=== PATIENT | male | born 1960 | race Caucasian/White ===

== ENCOUNTER 2016-07-14 11:06 | Outpatient (RCR) | payer OTHER ==
[~2016-07-14 11:06] MED LIST: AMBIEN 10MG10 MG PO
== END 2016-08-30 ==
LOC: WSOH
DX: M54.5 Low back pain (principal); M62.830 Muscle spasm of back; M51.36 Other intervertebral disc degeneration, lumbar region; X50.0XXA Overexertion from strenuous movement or load, initial encounter; Y99.0 Civilian activity done for income or pay

== ENCOUNTER 2016-09-05 08:18 | Outpatient (RCR) | payer OTHER | END 2016-10-03 11:30 | LOC: WSOH 08:18 | DX: M54.5 Low back pain (principal); M62.830 Muscle spasm of back; M51.36 Other intervertebral disc degeneration, lumbar region; X50.0XXA Overexertion from strenuous movement or load, initial encounter; Y99.0 Civilian activity done for income or pay ==